=== PATIENT | male | born 1990 | race Caucasian/White ===

== ENCOUNTER 2018-02-16 16:51 | Emergency (ER) | payer SELFPAY ==
--- NOTE | 2018-02-16 17:32 | EDPHYS ---
Physician Documentation [facility] Name: Jason Amado Age: 27 yrs Sex: Male : 1990 Arrival Date: 02/16/2018 Time: 16:55 Bed 16 Private MD: None, None ED Physician Aubrey Vasquez HPI: 02/16 17:26 This 27 yrs old Male presents to ER via Ambulatory with complaints of Mouth rn Injury. 17:26 The patient presents with pain. The problem is located in the chin. Onset: The rn symptoms/episode began/occurred just prior to arrival. Associated signs and symptoms: Pertinent positives: pain, redness in area, swelling. Severity of symptoms: At their worst the symptoms were mild, in the emergency department the symptoms are unchanged. The patient has not experienced similar symptoms in the past. Reports hit in face with tent stake [employer], no LOC, hit in chin, doesn't have bony or dental tenderness. Historical: - Allergies: 17:10 No Known Allergies; aa5 - PMHx: 17:10 None; aa5 - PSHx: 17:10 None; aa5 - Immunization history:: Adult Immunizations up to date. - Social history:: Smoking status: Patient/guardian denies using tobacco. - Ebola Screening: : No symptoms or risks identified at this time. - Family history:: not pertinent. - Hospitalizations: : No recent hospitalization is reported. ROS: 17:26 Constitutional: Negative for fever, chills, and weight loss, ENT: + chin pain and rn scrape of skin Neuro: Negative for headache, weakness, numbness, tingling, and seizure. Exam: 17:26 Constitutional: This is a well developed, well nourished patient who is awake, alert, rn and in no acute distress. Head/Face: Normocephalic, + 1cm abrasion just under lower lip, midline, with central punctate puncture wound, does not communicate insde oral cavity, no active bleeding, no mandibular bony tenderness Neuro: Awake and alert, GCS 15, oriented to person, place, time, and situation. Cranial nerves II-XII grossly intact. Motor strength 5/5 in all extremities. Sensory grossly intact. Cerebellar exam normal. Normal gait. Vital Signs: 17:15 BP 119 / 81; Pulse 95; Resp 16 S; Temp 98.0(TE); Pulse Ox 98% on R/A; Weight 108.86 kg aa5 (R); Height 6 ft. 3 in. (190.50 cm) (R); Pain 8/10; 17:15 Body Mass Index 30.00 (108.86 kg, 190.50 cm) aa5 MDM: 17:14 Patient medically screened. rn 17:26 Differential diagnosis: facial abrasion, puncture wound. Data reviewed: vital signs, rn nurses notes, and as a result, I will discharge patient. Counseling: I had a detailed discussion with the patient and/or guardian regarding: the historical points, exam findings, and any diagnostic results supporting the discharge/admit diagnosis, the need for outpatient follow up, to return to the emergency department if symptoms worsen or persist or if there are any questions or concerns that arise at home. Special discussion: I discussed with the patient/guardian in detail that at this point there is no indication for admission to the hospital. It is understood, however, that if the symptoms persist or worsen the patient needs to return immediately for re-evaluation. Administered Medications: No medications were administered Disposition: 02/16/18 17:31 Discharged to Home. Impression: Facial abrasion. - Condition is Stable. - Discharge Instructions: Abrasion, Puncture Wound. - Prescriptions for Doxycycline Monohydrate 100 mg Oral Tablet - take 1 tablet by ORAL route every 12 hours for 10 days; 20 tablet. - Medication Reconciliation Form, Thank You Letter, Antibiotic Education, Prescription Opioid Use form. - Follow up: Private Physician; When: As needed; Reason: Recheck today's complaints, Re-evaluation by your physician. - Problem is new. - Symptoms have improved. Signatures: Aubrey Vasquez MD MD rn Calderon, Audri, RN RN aa5 Ron Bland Corrections: (The following items were deleted from the chart) 18:00 17:31 02/16/2018 17:31 Discharged to Home. Impression: Facial abrasion. Condition is wh Stable. Forms are Medication Reconciliation Form, Thank You Letter, Antibiotic Education, Prescription Opioid Use. Follow up: Private Physician; When: As needed; Reason: Recheck today's complaints, Re-evaluation by your physician. Problem is new. Symptoms have improved. rn
--- NOTE | 2018-02-16 17:32 | ER ---
Nurse's Notes [facility] Name: Jason Amado Age: 27 yrs Sex: Male : 1990 Arrival Date: 02/16/2018 Time: 16:55 Bed 16 Private MD: None, None Diagnosis: Facial abrasion Presentation: 02/16 17:10 Presenting complaint: Patient states: "I [place] in [place] 17:10 Transition of care: patient was not received from another setting of care. Onset of aa5 symptoms was February 16, 2018. Risk Assessment: Do you want to hurt yourself or someone else? Patient reports no desire to harm self or others. Initial Sepsis Screen: Does the patient meet any 2 criteria? No. Patient's initial sepsis screen is negative. Does the patient have a suspected source of infection? No. Patient's initial sepsis screen is negative. Care prior to arrival: None. 17:10 Method Of Arrival: Ambulatory aa5 17:10 Acuity: DRU 5 aa5 Historical: - Allergies: 17:10 No Known Allergies; aa5 - PMHx: 17:10 None; aa5 - PSHx: 17:10 None; aa5 - Immunization history:: Adult Immunizations up to date. - Social history:: Smoking status: Patient/guardian denies using tobacco. - Ebola Screening: : No symptoms or risks identified at this time. - Family history:: not pertinent. - Hospitalizations: : No recent hospitalization is reported. Screenin:23 Abuse screen: Denies threats or abuse. Denies injuries from another. Nutritional aj screening: No deficits noted. Tuberculosis screening: No symptoms or risk factors identified. Fall Risk None identified. Assessment: 17:23 General: Appears in no apparent distress. comfortable, Behavior is calm, cooperative, aj appropriate for age. Pain: Complains of pain in chin. Neuro: Level of Consciousness is awake, alert, obeys commands, Oriented to person, place, time, situation, Appropriate for age. Respiratory: Airway is patent Respiratory effort is even, unlabored, Respiratory pattern is regular, symmetrical. Derm: Skin is intact, is healthy with good turgor, Skin is pink, warm \\T\\ dry. normal. Injury Description: Abrasion sustained to chin. Vital Signs: 17:15 BP 119 / 81; Pulse 95; Resp 16 S; Temp 98.0(TE); Pulse Ox 98% on R/A; Weight 108.86 kg aa5 (R); Height 6 ft. 3 in. (190.50 cm) (R); Pain 8/10; 17:15 Body Mass Index 30.00 (108.86 kg, 190.50 cm) aa5 ED Course: 16:55 Patient arrived in ED. mr 16:55 None, None is Private Physician. mr 17:10 Arm band placed on Patient placed in an exam room, on a stretcher. aa5 17:14 Triage completed. aa5 17:14 Aubrey Vasquez MD is Attending Physician. rn 17:23 Wanda Balbuena RN is Primary Nurse. aj 17:23 Patient has correct armband on for positive identification. aj 17:23 No provider procedures requiring assistance completed. Patient did not have IV access aj during this emergency room visit. Administered Medications: No medications were administered Outcome: 17:31 Discharge ordered by MD. rn 17:59 Discharged to home ambulatory, with family. 17:59 Condition: good 17:59 Discharge instructions given to patient, Instructed on discharge instructions, follow up and referral plans. medication usage, wound care, Demonstrated understanding of instructions, follow-up care, medications, wound care, Prescriptions given X 1. 18:00 Patient left the ED. Signatures: Wanda Balbuena, Kristin Robertson RN mr Aubrey Vasquez MD MD rn Calderon, Audri, RN RN aa5 [place], Winsy Corrections: (The following items were deleted from the chart) 17:16 17:10 Presenting complaint: Patient states: "I got hit in the mouth with a canopy tent aa[place]" aa5
== END 2018-02-16 18:00 | disposition home or self-care (01) ==
LOC: ER 16:51
DX: S00.511A Abrasion of lip, initial encounter (principal); W22.8XXA Striking against or struck by other objects, initial encounter; Y93.9 Activity, unspecified; Y92.9 Unspecified place or not applicable; Y99.9 Unspecified external cause status
CPT/HCPCS: 99282